=== PATIENT | female | born 1980 | race Caucasian/White ===

== ENCOUNTER 2017-08-27 09:10 | Day surgery (SDC) | payer BC ==
[~2017-08-27 09:10] MED LIST: LIDOCAINE HCL 1% MPF SOL ONE; PROPOFOL 500 MG/50 ML EMU IV ONE
[2017-08-27 10:59] VITALS: BP 125/85; PULSE 77; RESP 18; TEMP 97.5; O2SAT 100
== END 2017-08-27 11:17 | disposition home or self-care (01) ==
LOC: SURG 09:10
PROVIDERS: ATTEND Surgery
DX: K59.00 Constipation, unspecified (principal)
CPT/HCPCS: J2001; J2704